=== PATIENT | male | born 1960 | race Caucasian/White ===

== ENCOUNTER 2021-03-31 22:26 | Observation (INO) | payer OTHER ==
[~2021-03-31] VITALS: Ht 160 cm; Wt 72.0 kg
--- NOTE | 2021-03-31 22:30 | NUR ---
BROUGHT TO ROOM 14 A EMS
[2021-03-31 23:21] LABS: HEMATOCRIT 48.8 % (39.0-50.0); HEMOGLOBIN 16.6 g/dl (14.0-18.0); IMMATURE GRANULOCYTES 0.4 % (0.0-5.0); MEAN CELL VOLUME 92.1 fL CALC (80.0-100.0); MEAN CORPUSCULAR HGB 31.3 pG CALC (26.0-32.0); NEUT# 15.82 thou/uL (1.82-7.42); RED BLOOD COUNT 5.3 mill/uL (4.70-6.10); RED CELL DISTRI WIDTH 12.5 % (11.5-15.5)
[2021-03-31 23:43] LABS: ALBUMIN 4.5 g/dL (3.2-5.0); ALKALINE PHOSPHATASE 65 u/l (38-126); ANION GAP 18 (6-22 (CALC)); BILIRUBIN, TOTAL 1.3 mg/dL (0.0-1.4); BUN 16 mg/dL (8-23); BUN/CREATININE RATIO 15 (12-20 (CALC)); CARBON DIOXIDE 20 mmol/l (22-30); CHLORIDE 105 mmol/l (95-108); CREATININE 1.1 mg/dL (0.7-1.3); ETHYL ALCOHOL 0 mg/dl (0-30); GFR > 60 ML/MIN (>=60 (CALC)); GFR FOR AFR.AMER. > 60 ML/MIN (>=60 (CALC)); LIPASE 25 u/l (23-300); MAGNESIUM 1.9 mg/dL (1.6-2.3); POTASSIUM 4.4 mmol/l (3.5-5.1); SGOT/AST 24 u/l (19-48); SODIUM 138 mmol/l (137-146); TOTAL PROTEIN 7.8 g/dL (6.3-8.2)
[2021-04-01 00:06] LABS: ACT PARTIAL THROMBO TIME 20.9 SECONDS (20.0-32.5)
--- NOTE | 2021-04-01 00:16 | NUR ---
PT VERY SLEEPY BUT AROUSABLE. PT STILL UNSURE 'WHAT HAPPENED TONIGHT."
--- NOTE | 2021-04-01 00:21 | NUR ---
PT SLEEPING. AWAKENED TO COLLECT URINE SPECIMEN. PT WILL ATTEMPT TO VOID IN URINAL.
[2021-04-01 00:44] LABS: URINE BILIRUBIN - DIPSTICK NEGATIVE (NEGATIVE); URINE BLOOD DIPSTICK NEGATIVE (NEGATIVE); URINE COLOR YELLOW; URINE GLUCOSE - DIPSTICK >=1000 mg/dL (NEGATIVE); URINE KETONE TRACE mg/dL (NEGATIVE); URINE LEUK ESTERASE NEGATIVE (NEGATIVE); URINE PH 5.5 (4.5-8.0); URINE PROTEIN - DIPSTICK NEGATIVE (NEG-TRACE); URINE SPECIFIC GRAVITY <=1.005
[2021-04-01 00:48] LABS: URINE NITRITE - DIPSTICK NEGATIVE (Negative)
[2021-04-01 02:46] VITALS: BP 143/100
--- NOTE | 2021-04-01 02:50 | NUR ---
TRANSFERRED TO MED SURG.
--- NOTE | 2021-04-01 03:30 | NUR ---
PATIENT ADMITTED FROM ER VIA WHEELCHAIR WITH ER STAFF IN ATTENDANCE. PATIENT IS DROWSY BUT ABLE TO TRANSFER TO THE BED. PATIENT WITH O2 VIA NASAL CANNULA IN PLACE AT 2LPM-O2 SAT IS 99-100% AT THIS TIME. PATIENT IS AROUSABLE. ORIENTED TO PERSON AND PLACE. PATIENT IS NOT SURE HOW HE GOT TO THE ER TONIGHT. DOESN'T REMEMBER WHO CALLED 911 OR WHY-JUST REMEMBERS BEING HERE.PATIENT WAS ORIENTED TO MONTH AND YEAR, NAME AND BIRTHDATE. NO PAIN AT THIS TIME. PATIENT WITH TELE MONITOR IN PLACE-LAST READING WAS [id number]. PATIENT WITH IV SITE TO [facility] AND LEFT HAND-BOTH ARE HEALTHY WITH GOOD BLOOD RETURNS WHEN FLUSHED. MEND WAS DONE AND WNL. PATIENT STATES THAT HE DID HAVE CABGX3 3 MONTHS AGO AT [facility]. 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 LUNGS ARE CLEAR. HR IS REGULAR. SKIN IS WARM AND DRY. FACE IS FLUSHED. ABD IS SOFT WITH BS+. STATES THAT LAST BM WAS MORNING. DENIES ANY DIFFICULTY WITH URINATION. NO PERIPHERAL EDEMA NOTED. PULSES ARE PALPABLE. PATIENT WITH CONCERNS REGUARDING HIS SON AND HIS WHEREABOUTS. ATTEMPTED TO MAKE PHONE CALL FOR PATIENT TO HIS CELL PHONE WITHOUT ANY SUCCESS. PATIENT WAS ORIENTED TO ROOM AND SURROUNDINGS. INSTRUCTED ON USE OF NURSE CALL LIGHT SYSTEM AND TV REMOTE. SAFETY PRECAUTIONS REINFORCED. CALL LIGHT IN REACH. [id number] NS HUNG AND INFUSING VIA [facility] SITE AT 125CC/HR. PATIENT IS RESTING QUIETLY AT THIS TIME. WILL CONT TO MONITOR.
--- NOTE | 2021-04-01 04:10 | NUR ---
PT VERBALIZED CONCERN ABOUT 7 YEAR OLD SON. I CALLED [facility] (WHO WAS EMS AT [facility]) AT [phone] TO ASK WHO CALLED 911 AND IF THEY KNEW WHERE THE CHILD WAS. ANDREA SAID THAT A WOMAN CALLED 911. THEY ASSUME IT WAS PATIENT'S GIRLFRIEND. SHE, THE SON AND HIS CAR WERE NOT AT THE HOME WHEN EMS ARRIVED. DCSD AWARE AND LOOKING FOR THEM. ALSO, I ASKED ABOUT HIS CELL PHONE AND WAS TOLD THAT IT WAS LEFT ON THE BEDSIDE TABLE CLOSE TO WHERE HE HAD BEEN
--- NOTE | 2021-04-01 05:50 | NUR ---
PATIENT RESTING IN BED AT THIS TIME WITH EYES CLOSED. RESPS ARE EVEN AND UNLABORED. O2 VIA NASAL CANNULA IN PLACE. IVF NS PATENT AND INFUSING VIA [facility] SITE AT 125CC/HR. TELE MONITOR IN PLACE. CALL LIGHT IN REACH. WILL CONT TO MONITOR.
[2021-04-01 07:15] VITALS: BP 127/85
--- NOTE | 2021-04-01 07:15 | NUR ---
PATIENT LAYING IN BED AT THIS TIME. PATIENT IS ALERT AND ORIENTED X 3 PATIENT AWARE OF HIS SURROUNDINGS AND STATED THAT "I HAD $6,000.00 DOLLARS IN MY SHORT POCKET WHERE IS IT". PATIENT INFORMED THAT PER HIS BELONGING SHEET HE SIGNED THERE WAS NO MONEY INDICATED ON HIS PERSON AT TIME OF ADMISSION. PATIENT WAS ASKED IF THERE WAS SOMEONE WE COULD CALL FOR HIM AND HE GAVE THIS DELIVERY TECH HIS CELL PHONE NUMBER AND WHEN IT WAS DIALED THE PHONE WAS SILENCE AND NO RING THIS INFORMATION WAS GIVEN TO PATIENT. PATIENT STATED "MY SON I'M NOT SURE WHERE HE IS HE MIGHT BE WITH A FRIEND OR MY GIRL FRIEND" PATIENT GAVE THE NAME OF HIS GIRLFRIEND GABBY MORELAND AND STATED SHE MOVES AROUND [facility] AND LIVES IN [facility] BUT DOESN'T KNOW WHERE. PATIENT STATES SHE HAS BEEN MY GIRLFRIEND FOR 20 YEARS. PATIENT STATED " I NEED TO KNOW WHER MY MONEY IS". PATIENT INFORMED THAT THIS NURSE NEEDED TO DO AN ASSESSMENT AT THIS TIME AND IT WAS DONE SEE INTERVENTIONS. NEURO CHECK ARE NEGATIVE AND WITHOUT ANY DEFICTS. NO EVIDENCE OF EDEMA NOTED ANYWHERE LUNG NETTLES ARE CLEAR AT THIS TIME. TELE MONITOR IN PLACE AND BEING MONITORED BY ED AT THIS TIME. SIDERAILS ARE UP X2 CALL LIGHT IS WITHIN REACH AT THIS TIME. PATIENT ASKED IF HE WOULD LIKE TO MAKE A REPORT ON MISSING SON TO POLICE AND PATIENT DENIED NEED TO DO SO. PATIENT ADVISED THAT I WOULD GIVE ALL INFORMATION TO CORPORATE SALES REPRESENTATIVE AT THIS TIME.
--- NOTE | 2021-04-01 07:30 | NUR ---
PATIENT WALKED UP TO NURSES STATION AND TOLD THIS NURES "I NEED YOU TO GET A HOLD OF [employer] AND CANCEL MY ACCOUNTS I HAVE A $100,000.00 DOLLARS I DON'T WANT MY ACCOUNTS CLEARED OUT". PATIENT INFORMED THAT HE WOULD NEED TO CONTACT HIS BANK PERSONALLY. PATIENT GIVEN PENCIL AND PAPER TO DO SO. THIS NURSE DID GO AND SPEAK TO NURSE FRICTION SAW OPERATOR DREAD NETTLES AND REPORTED PATIENTS CONCERNS AT THIS TIME.
--- NOTE | 2021-04-01 07:50 | NUR ---
EXTERIOR DESIGNER AND CREPE BOX TENDER IN TO SEE SPEAK WITH PATIENT AT THIS TIME.
--- NOTE | 2021-04-01 08:45 | NUR ---
PATIENT ASKED IF IT WAS OKAY TO SPEAK TO POLICE REGARDING WHY HE WAS HERE AND PATIENT STATED YES.
--- NOTE | 2021-04-01 08:59 | NUR ---
[facility] OFFICER CAME TO DESK AND ASK TO SPEAK WITH THIS NURES AND ASKED ME "DID DRUGS PLAY A ROLE IN HIS CURRENT MEDICAL CONDITION". THIS NURSE STATED I AM NOT A PHYSICIAN AND CAN'T STATE THAT IS THE CAUSE. AT THIS TIME KORIN KIRK STATED TO THE MEDICAL CENTER DIRECTOR AT THIS TIME WE CAN NOT DETERMINE WHAT HAS CAUSED HIS CURRENT MEDICAL CONDITION. OFFICER AT THIS TIME MADE A PHONE CALL AND STEPPED AWAY FROM THE DESK.
--- NOTE | 2021-04-01 09:31 | NUR ---
COMBINE INSPECTOR ELVA CAME TO THE DESK AND STATE PATIENT IS VOMITITNG. THIS NURSE WENT TO ROOM FOUND PATIENT IN BATHROOM STANDING OVER COMMODE AND WHEN ASKED IF HE WAS OKAY HE STATED "YES I JUST THREW UP SOME WATER DUE TO BEING A LITTLE ANXIOUS" THERE WAS CLEAR LIQUID IN COMMODE AND PATIENT STATED " I NEED TO PEE NOW". THIS NURSE STATE I WILL INFORM PHYSICIAN OF HIM TRHOWING UP AND PATIENT STATED " I DON'T WANT ANY MEDICINE I AM FINE" "I THINK AFTER SPEAKING TO THE OFFICER I AM BEING SET UP BY MY GIRLFRIEND AND MY CAR IS GONE, MY MONEY IS GONE AND MY KID IS GONE" "NOW I AM BEING TOLD THERE WERE DRUGS IN MY SYSTEM" "I DON'T DUE DRUGS". PATIENT WAS ASSISTED BACK TO BEDSIDE AT THIS TIME AND PATIENT REQUESTED NO MEDICATION TO BE GIVEN AND PLEASE LEAVE HIS BREAKFAST TRAY AT THIS TIME AND HE WILL EAT SOMETHING SOON. THIS NURSE OFFERED TO RE-HEAT BREAKFAST AT ANYTIME. FARHANA ARE UP CALL LIGHT [employer] OFFICER RETURNED BACK TO ROOM AT THIS TIME.
--- NOTE | 2021-04-01 10:06 | NUR ---
PATIENT IN BED AT THIS TIME. PATIENT DENEIS ANY NEEDS AND GEOPOLITICS TEACHER REMAINS IN ROOM AT THIS TIME WITH PATIENT.
--- NOTE | 2021-04-01 10:28 | NUR ---
LAB CALLED WITH CRITICAL PROCAL RESULT AND PROVIDER DR. ELENA GIVEN RESULTS AT THIS TIME. NO NEW ORDERS GIVEN.
[2021-04-01] MEDS ORDERED: ADLT ASA LOW81 MG PO (10:46)
[2021-04-01] MEDS ORDERED: PLAVIX75 MG PO (10:47)
[2021-04-01] MEDS ORDERED: TAMSULOSIN HCL0.4 MG PO (10:47)
[2021-04-01] MEDS ORDERED: METOPROL TAR25 MG PO (10:48)
[2021-04-01] MEDS ORDERED: LIPITOR20 M1 PO (10:49)
[2021-04-01] MEDS ORDERED: KEFLEX500 MG PO (11:13)
--- NOTE | 2021-04-01 11:38 | NUR ---
PATIENT D/C AT THIS TIME. TELE MONITOR REMOVED AND ED CALLED AND AMY BURNETT NOTIFIED. PATIENT UNDERSTANDS D/C INSTRUCTIONS AT THIS TIME. IV REMOVED.
--- NOTE | 2021-04-01 11:50 | NUR ---
MARGARITA NEEDS CAB RIDE HOME THIS NURSE SPOKE TO RESIDENTIAL TEAM LEADER DREAD NETTLES AND SHE APPROVED CAB.
--- NOTE | 2021-04-01 11:57 | NUR ---
Discharge instructions given. Patient verbalizes understanding of same. Discharged in stable condition via Wheelchair to Home with *Other. All belongings sent with pt. PATIENT LEFT TO HOME VIA TAXI PAID BY [facility].
== END 2021-04-01 11:58 | disposition home or self-care (01) ==
LOC: ED 22:26 → MS2 04-01 01:47 → ED-I 04-01 01:47 → MS2 04-01 01:48
PROVIDERS: ADMIT Internal Medicine; ATTEND Internal Medicine
DX: R55 Syncope and collapse (principal); R40.4 Transient alteration of awareness; F14.10 Cocaine abuse, uncomplicated; D72.829 Elevated white blood cell count, unspecified; E11.65 Type 2 diabetes mellitus with hyperglycemia; I10 Essential (primary) hypertension; I25.10 Atherosclerotic heart disease of native coronary artery without angina pectoris; E78.5 Hyperlipidemia, unspecified; F17.200 Nicotine dependence, unspecified, uncomplicated; Z95.1 Presence of aortocoronary bypass graft; Z86.73 Personal history of transient ischemic attack (TIA), and cerebral infarction without residual deficits; Z79.02 Long term (current) use of antithrombotics/antiplatelets; Z79.82 Long term (current) use of aspirin; Z20.822 Contact with and (suspected) exposure to COVID-19
CPT/HCPCS: G0378; Q9967

== ENCOUNTER 2022-08-12 17:51 | Emergency (ER) | payer OTHER ==
[~2022-08-12] VITALS: Ht 160 cm; Wt 77.0 kg
[~2022-08-12 17:51] MED LIST: ADLT ASA LOW81 MG PO; KEFLEX500 MG PO; LIPITOR20 M1 PO; METOPROL TAR25 MG PO; PLAVIX75 MG PO; TAMSULOSIN HCL0.4 MG PO
[2022-08-12 18:33] LABS: BASO% 0.4 % (0-3); EOS% 1.7 % (0-8); HEMATOCRIT 50.4 % (39.0-50.0); HEMOGLOBIN 17.3 g/dl (14.0-18.0); IMMATURE GRANULOCYTES 0.1 % (0.0-5.0); LYMPH% 17.8 % (15-41); MEAN CELL VOLUME 92.1 fL CALC (80.0-100.0); MEAN CORPUSCULAR HGB 31.6 pG CALC (26.0-32.0); MEAN CORPUSCULAR HGB CONC 34.3 g/dL CAL (32.0-36.0); MONO% 10.1 % (2-13); NEUT# 5.64 thou/uL (1.82-7.42); NEUT% 69.9 % (42-76); RED BLOOD COUNT 5.47 mill/uL (4.70-6.10); RED CELL DISTRI WIDTH 11.8 % (11.5-15.5)
[2022-08-12] MEDS ORDERED: ZPAK PO ×2 (18:42→19:25)
[2022-08-12] MEDS ORDERED: PREDNISONE50 MG PO (18:42)
[2022-08-12] MEDS ORDERED: VENTOLIN HFA108 MCG PO (18:44)
[2022-08-12 18:51] LABS: ALKALINE PHOSPHATASE 59 u/l (38-126); ANION GAP 12 (6-22 (CALC)); BILIRUBIN, TOTAL 0.9 mg/dL (0.2-1.3); BUN 17 mg/dL (8-23); BUN/CREATININE RATIO 19 (12-20 (CALC)); CARBON DIOXIDE 24 mmol/l (22-30); CHLORIDE 103 mmol/l (95-108); CREATININE 0.9 mg/dL (0.7-1.3); GFR FOR AFR.AMER. > 60 ML/MIN (>=60 (CALC)); GFR OTHER RACES > 60 ML/MIN (>=60 (CALC)); POTASSIUM 4.2 mmol/l (3.5-5.1); SGOT/AST 29 u/l (19-48); SODIUM 135 mmol/l (137-146)
[2022-08-12 19:37] VITALS: BP 150/99
== END 2022-08-12 19:40 | disposition home or self-care (01) ==
LOC: ED 17:51
PROVIDERS: Family Medicine
DX: J06.9 Acute upper respiratory infection, unspecified (principal); I10 Essential (primary) hypertension; E11.9 Type 2 diabetes mellitus without complications; F17.200 Nicotine dependence, unspecified, uncomplicated; F41.9 Anxiety disorder, unspecified; F32.A Depression, unspecified; Z86.73 Personal history of transient ischemic attack (TIA), and cerebral infarction without residual deficits; Z95.1 Presence of aortocoronary bypass graft; Z20.822 Contact with and (suspected) exposure to COVID-19